=== PATIENT | male | born 1955 | race Caucasian/White ===

== ENCOUNTER 2017-03-12 05:42 | Day surgery (SDC) | payer OTHER ==
[2017-03-12] MEDS ORDERED: Lactated Ringers 1,000 ML IV SCH (06:30)
[2017-03-12] MEDS ORDERED: Versed 2 MG/2 ML Injection IV ONE (08:00)
[2017-03-12] MEDS ORDERED: SUBLIMAZE 100 MCG/2 ML IV ONE (08:00)
[2017-03-12] MEDS ORDERED: DIPRIVAN 200 MG/20 ML IV ONE (08:00)
[2017-03-12 08:40] VITALS: BP 133/83; PULSE 72; O2SAT 96
--- NOTE | 2017-03-12 10:18 | OP ---
SURGERY DATE/TIME: 03/12/2017 0700 PREOPERATIVE DIAGNOSIS: Low abdominal pain. POSTOPERATIVE DIAGNOSIS: Normal exam. PROCEDURE: Diagnostic colonoscopy. SURGEON: Jak Chun M.D. ANESTHESIA: MAC by Lit Gore CRNA. ESTIMATED BLOOD LOSS: None. SPECIMENS: None. DESCRIPTION OF PROCEDURE: After informed written consent was obtained, the patient was taken to the endoscopy suite. He underwent monitored anesthesia. A digital rectal exam showed normal sphincter tone and no internal lesions. The scope was inserted in the rectum and sequentially the entire colonic mucosa was traversed. The level of cecum was reached and verified with direct visualization of ileocecal valve. Upon withdrawal careful mucosal inspection revealed no gross abnormalities. The prep was noted to be good. Prior to withdrawal retroflexion was performed and was within normal limits. The scope was removed and the patient was transferred to the recovery room in excellent condition.
== END 2017-03-12 08:44 | disposition home or self-care (01) ==
LOC: SDC 05:42
PROVIDERS: ATTEND Family Medicine
PROC: 0DJD8ZZ Inspection of Lower Intestinal Tract, Via Natural or Artificial Opening Endoscopic (ICD-10-PCS; principal; 2017-03-12)
DX: R10.30 Lower abdominal pain, unspecified (principal); I10 Essential (primary) hypertension; E03.9 Hypothyroidism, unspecified
CPT/HCPCS: 00810; J2250; J2704; J3010

== ENCOUNTER 2019-04-13 16:03 | Emergency (ER) | payer OTHER ==
--- NOTE | 2019-04-13 16:17 | ERPHSYRPT ---
- History of Present Illness Time Seen by Provider: 04/13/19 16:17 Source: patient Exam Limitations: no limitations Patient Subjective Stated Complaint: Pt states "I was putting up stands and I fell and hit my face. I cut the bottom of my lip." Triage Nursing Assessment: Pt presented alert and oriented X 3, skin pwd. Ptable to speak in clear full sentences. Pt has laceration noted to lower lip on the outside and a laceration to lip on the inner lip side. Physician History: Fell, hit face - cut thru lip Timing/Duration: abrupt onset Severity: moderate ENT Location: mouth (lower lip R of midline) Prearrival Treatment: no prearrival treatment Modifying Factors: Improves With: nothing Associated Symptoms: denies symptoms Allergies/Adverse Reactions: No Known Drug Allergies Allergy (Verified 03/12/17 06:11) Home Medications: Aspirin 81 mg PO DAILY 12/04/12 [History] Levothyroxine Sodium 50 mcg PO DAILY 12/04/12 [History] Quinapril/Hydrochlorothiazide [Quinaretic 20-25 mg Tablet] 1 each PO DAILY 12/04 [History] Hx Tetanus, Diphtheria Vaccination/Date Given: No Hx Influenza Vaccination/Date Given: Yes Hx Pneumococcal Vaccination/Date Given: No Immunizations Up to Date: Yes - Review of Systems Constitutional: No Symptoms Eyes: No Symptoms Ears, Nose, & Throat: Mouth Swelling (lower lip swelling and laceration) Respiratory: No Symptoms Cardiac: No Symptoms All Other Systems: Reviewed and Negative - Past Medical History Pertinent Past Medical History: Yes Neurological History: No Pertinent History ENT History: No Pertinent History Cardiac History: Hypertension Respiratory History: No Pertinent History Endocrine Medical History: No Pertinent History, Hypothyroidism Musculoskeletal History: No Pertinent History GI Medical History: No Pertinent History History: No Pertinent History Psycho-Social History: No Pertinent History Male Reproductive Disorders: No Pertinent History - Past Surgical History Past Surgical History: Yes Neuro Surgical History: No Pertinent History Cardiac: No Pertinent History Respiratory: No Pertinent History Gastrointestinal: No Pertinent History Genitourinary: No Pertinent History Musculoskeletal: No Pertinent History Male Surgical History: Other Other Surgical History: vericos vein.colonoscopy - Social History Smoking Status: Never smoker Exposure to second hand smoke: No Drug Use: none Patient Lives Alone: No - Nursing Vital Signs Nursing Vital Signs: Initial Vital Signs Temperature 98.1 F 04/13/19 16:08 Pulse Rate 94 H 04/13/19 16:08 Respiratory Rate 18 04/13/19 16:08 Blood Pressure 149/98 04/13/19 16:08 O2 Sat by Pulse Oximetry 95 04/13/19 16:08 Pain Scale Pain Intensity 2 - Physical Exam General Appearance: mild distress (On;ly with pain lower lip - edema and laceration) Eye Exam: bilateral eye: normal inspection, PERRL Ear Exam: bilateral ear: auricle normal Nasal Exam: normal inspection Throat Exam: normal Neck Exam: normal inspection Neurologic Exam: alert, oriented x 3, cooperative Skin Exam: normal color, warm, dry SpO2 Interpretation: normal SpO2: 95 O2 Delivery: Room Air - Course Nursing assessment & vital signs reviewed: Yes Ordered Tests: Medication Summary Discontinued Medications Generic Name Dose Route Start Last Admin Trade Name Freq PRN Reason Stop Dose Admin Diphtheria/Tetanus/Acell Pertussis 0.5 ml 04/13/19 16:23 04/13/19 16:36 Adacel Vial IM 04/13/19 16:24 0.5 ml .ONCE ONE Administration Diphtheria/Tetanus/Acell Pertussis Confirm 04/13/19 16:32 Adacel Vial Administered 04/13/19 16:33 Dose 0.5 ml IM .STK-MED ONE Lidocaine HCl 5 ml 04/13/19 16:29 04/13/19 16:38 Xylocaine 1% Hcl 20 Ml Mdv IJ 04/13/19 16:30 5 ml STAT ONE Administration Lidocaine HCl Confirm 04/13/19 16:32 Xylocaine 1% Hcl 20 Ml Mdv Administered 04/13/19 16:33 Dose 1 ml .ROUTE .STK-MED ONE - Progress Progress: improved (Patient tolerated laceration repair well) - Departure Departure Disposition: Home Clinical Impression: Laceration of lip without complication Qualifiers: Encounter type: initial encounter Qualified Code(s): S01.511A - Laceration without foreign body of lip, initial encounter Condition: Good Critical Care Time: No Referrals: DAMARIS JARVIS MD [Primary Care Provider] - Instructions: Wound Care (DC), Laceration Repair With Stitches (DC) Additional Instructions: Suturees out days; watch for signs of infection. Inner lip laceration will heal on its own; salt water gargles will help with maintaining oral cleanliness and healing process.
[2019-04-13] MEDS ORDERED: Adacel Vial IM ONE ×2 (16:23→16:32)
[2019-04-13] MEDS ORDERED: XYLOCAINE 1% HCL 20 ML MDV IJ ONE (16:29)
[2019-04-13] MEDS ORDERED: XYLOCAINE 1% HCL 20 ML MDV ONE (16:32)
[2019-04-13 17:25] VITALS: BP 127/90; PULSE 86
[2019-04-13 17:37] VITALS: O2SAT 95
== END 2019-04-13 17:49 | disposition home or self-care (01) ==
LOC: ED 16:03
DX: S01.511A Laceration without foreign body of lip, initial encounter (principal); W01.198A Fall on same level from slipping, tripping and stumbling with subsequent striking against other object, initial encounter; Y93.89 Activity, other specified
CPT/HCPCS: 90471; 90715; 96372; 99284